=== PATIENT | female | born 1960 | race Caucasian/White ===

== ENCOUNTER 2016-10-06 21:36 | Emergency (ER) | payer OTHER ==
--- NOTE | 2016-10-06 22:04 | ED NURSING NOTES ---
Clinical Report - Nurses [facility] [address] [place] [address] 10/06/2016 21:38 Patient: KAYKAY BLAS TRIAGE Triage time 21:48 Oct 06 2016. Acuity: LEVEL 4. Chief Complaint: (fever and sore throat). 21:52 10/06/16. SEPSIS SCREEN: Sepsis Screen. Negative (no infection suspected/documented). ARELY COMA SCORE: Arely Coma Scale: 15- eyes open spontaneously (4); best verbal response- oriented x 4 (5); best motor response- obeys commands (6). --21:52 Mirella Collins R.N. 21:52 10/06/16. BP: 179/80. HR: 94. RR: 100. O2 saturation: 100%. Temp: 100.9 F. Pain level now 8/10. --21:52 Mirella Collins R.N. Weight: 65.7 kg stated. Height/Length: 63 inches Per Patient. BMI: 25.7. --21:47 Mirella Collins R.N. Medications None. --21:50 Mirella Collins R.N. Medication/allergy information source: the patient. --21:52 Mirella Collins R.N. Allergies No Known Drug Allergy. --21:50 Mirella Collins R.N. History Arrived by private vehicle. Historian: patient ([facility]). Accompanied by family. This started today. ( painful throat, pain to swallow). She has had fever and a cough. No weakness, difficulty breathing or skin rash. Denies muscle aches. 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 PAST MEDICAL HX: Immunizations: seasonal influenza. SOCIAL HX: Never smoker. Occasional alcohol use. No drug use. No infectious disease exposure. ABUSE ASSESSMENT: No report of abuse. SELF HARM ASSESSMENT: A self harm assessment was performed. The patient answered "no" to the question "Have you recently felt down, depressed, or hopeless?", "Have you noticed less interest or pleasure in doing things?", "Do you have thoughts of harming or killing yourself?", "Are you here because you tried to hurt yourself?", "Have you ever tried to hurt yourself before today?", "Have you recently had thoughts about harming or killing others?" and "Do you have any dangerous items in your possession?". NUTRITIONAL RISK ASSESSMENT: The nutritional risk assessment revealed no deficiencies. FUNCTIONAL ASSESSMENT: Functional assessment: no impairments noted. LEARNING NEEDS ASSESSMENT: The learning needs assessment revealed no barriers. SKIN INTEGRITY ASSESSMENT: Skin integrity risk assessment completed. No skin integrity risk identified. --21:52 Mirella Collins R.N. PROBLEMS: no known problems. ADDITIONAL SURGERIES: Cardiac ablation. --21:50 Mirella Collins R.N. Interventions ID band on patient. --21:52 Mirella Collins R.N. PHYSICAL ASSESSMENT 21:53 10/06/16. GENERAL / NEURO / PSYCH: Alert. Oriented X 4. HEENT: Pupils equal, round and reactive to light. No facial asymmetry noted. Pharyngeal erythema. Runny nose. No sinus tenderness present. RESPIRATORY: Breath sounds within normal limits. CVS: Pulses within normal limits. GI / : Abdomen nontender. SKIN: Skin intact. Skin is warm and dry. Normal skin turgor. --21:53 Mirella Collins R.N. NURSING PROGRESS NOTES 21:54 10/06/16. Patient gowned. Reassurance given. Patient identifiers checked. Call light placed in reach. Side rails up. Bed placed in lowest position. Brakes of bed on. Patient ready for evaluation. --21:54 Mirella Collins R.N. 22:15 10/06/2016 Hydrocodone-APAP (Hydrocodone-Acetaminophen) PO 5/325 mg Tablets 1 tab given. Allergies verified, confirmed 5 rights and sedative warning given to the patient and patient's family. --22:19 Mirella Collins R.N. DISPOSITION / DISCHARGE 22:20 10/06/16. Departure time: 22:20 Oct 06 2016. Condition at departure: improved and stable. The goals identified in the patient's plan of care were met. No learning barriers present. Reviewed medication(s) side effects, precautions, dosing and course information. Prescription(s) given to the patient. Reviewed fever care instructions. Reviewed referral to a primary care physician for followup. Summary of care provided to patient via paper. Patient verbalized understanding. Written instructions provided in Paraguayan. The patient was discharged home and accompanied by spouse. She left the Emergency Department ambulatory and via private vehicle. Spouse driving. FALL RISK ASSESSMENT: Fall risk assessment completed. No fall risk identified. --22:20 Mirella Collins R.N. 21:48 10/06/16. BP: 179/80. HR: 94. RR: 100. O2 saturation: 100%. Temp: 100.9 F. Pain level now 8/10. --22:20 Mirella Collins R.N. Locked/Released at 10/06/2016 22:20 by Mirella Collins R.N.
--- NOTE | 2016-10-06 22:04 | ED CLINICAL REPORT ---
Clinical Report - Physicians/Mid Levels [facility] [address] [place] [address] 10/06/2016 21:38 Patient: KAYKAY BLAS Time Seen: 21:42; upon arrival, initial patient contact, initial documentation, patient care assumed. Arrived- By private vehicle. Historian- patient. HISTORY OF PRESENT ILLNESS Chief Complaint: SORE THROAT. This started about 2 - 3 days ago and is still present and now worse. (today with fever). The patient has had a severe sore throat with pain upon swallowing. No mouth sores, nasal discharge or congestion, ear pain or toothache. No swollen jaw or face, jaw pain or facial pain. Similar symptoms previously: None. Recent medical care: Not recently seen/assessed. REVIEW OF SYSTEMS The patient has had fever of 101 F and enlarged lymph nodes. No cough or difficulty breathing. All systems otherwise negative, except as recorded above. PAST HISTORY See nurses notes. PROBLEMS: no known problems. ADDITIONAL SURGERIES: Cardiac ablation. --21:50 Mirella Collins R.N. SOCIAL HISTORY Never smoker. No alcohol use or drug use. No recent travel. Is a local resident. FAMILY HISTORY Negative. ADDITIONAL NOTES The nursing notes have been reviewed with agreement regarding the chief complaint, HPI, ROS, PMH and patient medications and allergies. PHYSICAL EXAM Vital Signs: 10/06/2016 21:52 BP: 179/80. HR: 94. RR: 100. O2 saturation: 100%. Temp: 100.9 F. Have been reviewed as abnormal and appear to be correct. Blood pressure normal. Heart rate normal. Respiratory rate normal. Febrile. Oxygen saturation normal. Appearance: Alert. No acute distress. Head: Normal external inspection. Eyes: Pupils equal, round and reactive to light. Conjunctivae and eyelids normal. ENT: Ears not normal. Abnormal ear exam. Right Ear: there is wax completely occluding the external canal and a cerumen impaction. Nose normal. Pharynx abnormal. Moderate generalized pharyngeal erythema. No pharyngeal vesicles or ulcerations. No right tonsillar exudate, right tonsillar abscess, right tonsillar swelling, right peritonsillitis, left tonsillar exudate, left tonsillar swelling or left peritonsillitis. Lips normal. Gums normal. No trismus present. Uvula midline. Neck: Lymphadenopathy. Normal inspection. Moderate right anterior neck and moderate left anterior neck lymphadenopathy present. Trachea midline. Thyroid normal. Neck supple. Respiratory: No respiratory distress. Skin: Normal skin color. No rash. Normal skin turgor. Extremities: Extremities exhibit normal ROM. Extremities nontender. Neuro: Oriented X 3. No motor deficit. No sensory deficit. PROGRESS AND PROCEDURES Patient and spouse counseled in person regarding the patient's stable condition and diagnosis. 22:04. Differential Diagnosis: Other possible considerations: pharyngitis - viral or bacteria, mono, marychuy angina, flu. Above considerations are based on history and physical exam. Differential diagnosis was discussed with patient. Disposition: Discharged home in good and unchanged condition (22:04). Condition: good and stable. CLINICAL IMPRESSION Acute pharyngitis Acute fever INSTRUCTIONS Alternate Tylenol (Acetaminophen) and Motrin (Ibuprofen) for fever, temperature greater than 101 degrees orally. Take according to label instructions. Drink plenty of fluids. Warnings: GENERAL WARNINGS: Return or contact your physician immediately if your condition worsens or changes unexpectedly, if not improving as expected, or if other problems arise. Specifically return if problem worsens. Prescription Medications: Amoxicillin 500 mg tablets: Take 1 orally every 8 hours for 10 days. Dispense thirty (30). No refills. Motrin 600 mg tablets: take 1 tablet orally every 6 hours as needed for pain or fever. Dispense twenty (20). No refill. Follow-up: Follow up with your doctor in about three days even if well. Call for an appointment. Summary of care provided to patient. Understanding of the discharge instructions verbalized by patient. (Electronically signed by Jie Atwood A.R.N.P. 10/06/2016 22:26)
--- NOTE | 2016-10-06 22:04 | ED NURSING NOTES ---
Clinical Report - Nurses [facility] [address] [place] [address] 10/06/2016 21:38 Patient: KAYKAY BLAS TRIAGE Triage time 21:48 Oct 06 2016. Acuity: LEVEL 4. Chief Complaint: (fever and sore throat). 21:52 10/06/16. SEPSIS SCREEN: Sepsis Screen. Negative (no infection suspected/documented). ARELY COMA SCORE: Arely Coma Scale: 15- eyes open spontaneously (4); best verbal response- oriented x 4 (5); best motor response- obeys commands (6). --21:52 Mirella Collins R.N. 21:52 10/06/16. BP: 179/80. HR: 94. RR: 100. O2 saturation: 100%. Temp: 100.9 F. Pain level now 8/10. --21:52 Mirella Collins R.N. Weight: 65.7 kg stated. Height/Length: 63 inches Per Patient. BMI: 25.7. --21:47 Mirella Collins R.N. Medications None. --21:50 Mirella Collins R.N. Medication/allergy information source: the patient. --21:52 Mirella Collins R.N. Allergies No Known Drug Allergy. --21:50 Mirella Collins R.N. History Arrived by private vehicle. Historian: patient ([facility] [place]). Accompanied by family. This started today. ( painful throat, pain to swallow). She has had fever and a cough. No weakness, difficulty breathing or skin rash. Denies muscle aches. 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 PAST MEDICAL HX: Immunizations: seasonal influenza. SOCIAL HX: Never smoker. Occasional alcohol use. No drug use. No infectious disease exposure. ABUSE ASSESSMENT: No report of abuse. SELF HARM ASSESSMENT: A self harm assessment was performed. The patient answered "no" to the question "Have you recently felt down, depressed, or hopeless?", "Have you noticed less interest or pleasure in doing things?", "Do you have thoughts of harming or killing yourself?", "Are you here because you tried to hurt yourself?", "Have you ever tried to hurt yourself before today?", "Have you recently had thoughts about harming or killing others?" and "Do you have any dangerous items in your possession?". NUTRITIONAL RISK ASSESSMENT: The nutritional risk assessment revealed no deficiencies. FUNCTIONAL ASSESSMENT: Functional assessment: no impairments noted. LEARNING NEEDS ASSESSMENT: The learning needs assessment revealed no barriers. SKIN INTEGRITY ASSESSMENT: Skin integrity risk assessment completed. No skin integrity risk identified. --21:52 Mirella Collins R.N. PROBLEMS: no known problems. ADDITIONAL SURGERIES: Cardiac ablation. --21:50 Mirella Collins R.N. Interventions ID band on patient. --21:52 Mirella Collins R.N. PHYSICAL ASSESSMENT 21:53 10/06/16. GENERAL / NEURO / PSYCH: Alert. Oriented X 4. HEENT: Pupils equal, round and reactive to light. No facial asymmetry noted. Pharyngeal erythema. Runny nose. No sinus tenderness present. RESPIRATORY: Breath sounds within normal limits. CVS: Pulses within normal limits. GI / : Abdomen nontender. SKIN: Skin intact. Skin is warm and dry. Normal skin turgor. --21:53 Mirella Collins R.N. NURSING PROGRESS NOTES 21:54 10/06/16. Patient gowned. Reassurance given. Patient identifiers checked. Call light placed in reach. Side rails up. Bed placed in lowest position. Brakes of bed on. Patient ready for evaluation. --21:54 Mirella Collins R.N. 22:15 10/06/2016 Hydrocodone-APAP (Hydrocodone-Acetaminophen) PO 5/325 mg Tablets 1 tab given. Allergies verified, confirmed 5 rights and sedative warning given to the patient and patient's family. --22:19 Mirella Collins R.N. DISPOSITION / DISCHARGE 22:20 10/06/16. Departure time: 22:20 Oct 06 2016. Condition at departure: improved and stable. The goals identified in the patient's plan of care were met. No learning barriers present. Reviewed medication(s) side effects, precautions, dosing and course information. Prescription(s) given to the patient. Reviewed fever care instructions. Reviewed referral to a primary care physician for followup. Summary of care provided to patient via paper. Patient verbalized understanding. Written instructions provided in Cam[place]onian. The patient was discharged home and accompanied by spouse. She left the Emergency Department ambulatory and via private vehicle. Spouse driving. FALL RISK ASSESSMENT: Fall risk assessment completed. No fall risk identified. --22:20 Mirella Collins R.N. 21:48 10/06/16. BP: 179/80. HR: 94. RR: 100. O2 saturation: 100%. Temp: 100.9 F. Pain level now 8/10. --22:20 Mirella Collins R.N. Locked/Released at 10/06/2016 22:20 by Mirella Collins R.N.
--- NOTE | 2016-10-06 22:26 | ED MED RECONCILIATION SUMMARY ---
Patient: KAYKAY BLAS Medication Reconciliation Report [facility] VisitID: [id number] [address] [place] [address] 56y, F Registration Date/Time: 10/06/2016 Weight: 65.7 kg Height/Length: 63 in. BMI: 25.7 ALLERGIES: No Known Drug Allergy The patient's Home Medications are listed below: NONE. The source(s) of the original Home Medication information: patient The following Medications were given to the patient in the Emergency Department: Hydrocodone-APAP [PO] PO 1 tab, administered: 10/06/2016 10:15:00 PM The following Medications were prescribed to the patient: Amoxicillin 500 mg tablets: Take 1 orally every 8 hours for 10 days. Dispense thirty (30). No refills. -- Jie Atwood, A.R.N.P. Motrin 600 mg tablets: take 1 tablet orally every 6 hours as needed for pain or fever. Dispense twenty (20). No refill. -- Jie Atwood, A.R.N.P.
--- NOTE | 2016-10-06 22:26 | ED MED RECONCILIATION SUMMARY ---
Patient: KAYKAY BLAS Medication Reconciliation Report VisitID: [id number] [address] [place] [address] 56y, F Registration Date/Time: 10/06/2016 Weight: 65.7 kg Height/Length: 63 in. BMI: 25.7 ALLERGIES: No Known Drug Allergy The patient's Home Medications are listed below: NONE. The source(s) of the original Home Medication information: patient The following Medications were given to the patient in the Emergency Department: Hydrocodone-APAP [PO] PO 1 tab, administered: 10/06/2016 10:15:00 PM The following Medications were prescribed to the patient: Amoxicillin 500 mg tablets: Take 1 orally every 8 hours for 10 days. Dispense thirty (30). No refills. -- Jie Atwood, A.R.N.P. Motrin 600 mg tablets: take 1 tablet orally every 6 hours as needed for pain or fever. Dispense twenty (20). No refill. -- Jie Atwood, A.R.N.P.
--- NOTE | 2016-10-06 22:26 | ED ORDER SUMMARY ---
..... Patient: KAYKAY BLAS OrderSheet [facility] VisitID: [id number] [address] [place] [address] 56y, F Registration Date/Time: 10/06/2016 ORDER SHEET Weight: 65.7 kg (stated) Allergies: No Known Drug Allergy GENERAL ORDERS: MEDICATION ORDERS: Hydrocodone-APAP PO 5/325 mg (NOW, HIGH ALERT MEDICATION) (22:04 10/06/2016 Guerrero A.R.N.P.) (22:19 Shaw R.N.) IV FLUIDS: ORDER SHEET NOTES: [Electronically signed by Mirella Collins R.N. (22:20 10/06/2016)] [Electronically signed by Jie AtwoodR.N.PLalito (22:26 10/06/2016)] [Electronically locked/signed by Mirella Collins R.N. (22:20 10/06/2016)]
--- NOTE | 2016-10-06 22:26 | ED MAR SUMMARY ---
..... Medication Administration Record [facility] [address] [place] [address] Patient: KAYKAY BLAS Visit ID: [id number] 56y, F Weight: 65.7 kg Height/Length: 63 in BMI: 25.7 ALLERGIES: No Known Drug Allergy Given 22:15 10/06/2016 Mirella Collins R.N. Medication Administered: HYDROCODONE-APAP [PO] (HYDROCODONE-ACETAMINOPHEN), Dose: 1 tab 5/325 mg Tablets PO. Medication Ordered: Hydrocodone-APAP PO 5/325 mg (NOW, HIGH ALERT MEDICATION).
--- NOTE | 2016-10-06 22:26 | ED ORDER SUMMARY ---
..... Patient: KAYKAY BLAS OrderSheet [facility] VisitID: [id number] [address] [place] [address] 56y, F Registration Date/Time: 10/06/2016 ORDER SHEET Weight: 65.7 kg (stated) Allergies: No Known Drug Allergy GENERAL ORDERS: MEDICATION ORDERS: Hydrocodone-APAP PO 5/325 mg (NOW, HIGH ALERT MEDICATION) (22:04 10/06/2016 Guerrero A.R.N.P.) (22:19 Shaw R.N.) IV FLUIDS: ORDER SHEET NOTES: [Electronically signed by Mirlela Collins R.N. (22:20 10/06/2016)] [Electronically signed by Jie AtwoodR.N.PLalito (22:26 10/06/2016)] [Electronically locked/signed by Mirella Collins R.N. (22:20 10/06/2016)]
--- NOTE | 2016-10-06 22:26 | ED MAR SUMMARY ---
..... Medication Administration Record [facility] [address] [place] [address] Patient: KAYKAY BLAS Visit ID: [id number] 56y, F Weight: 65.7 kg Height/Length: 63 in BMI: 25.7 ALLERGIES: No Known Drug Allergy Given 22:15 10/06/2016 Mirella Collins R.N. Medication Administered: HYDROCODONE-APAP [PO] (HYDROCODONE-ACETAMINOPHEN), Dose: 1 tab 5/325 mg Tablets PO. Medication Ordered: Hydrocodone-APAP PO 5/325 mg (NOW, HIGH ALERT MEDICATION).
--- NOTE | 2016-10-06 22:26 | ED DISCHARGE INSTRUCTIONS ---
Patient: KAYKAY BLAS General Instructions [facility] VisitID: [id number] [place] [address] 56y, F Registration Date/Time: 10/06/2016 Acute pharyngitis Acute fever INSTRUCTIONS Alternate Tylenol (Acetaminophen) and Motrin (Ibuprofen) for fever, temperature greater than 101 degrees orally. Take according to label instructions. Drink plenty of fluids. Warnings: GENERAL WARNINGS: Return or contact your physician immediately if your condition worsens or changes unexpectedly, if not improving as expected, or if other problems arise. Specifically return if problem worsens. Prescription Medications: Amoxicillin 500 mg tablets: Take 1 orally every 8 hours for 10 days. Dispense thirty (30). No refills. Motrin 600 mg tablets: take 1 tablet orally every 6 hours as needed for pain or fever. Dispense twenty (20). No refill. Follow-up: Follow up with your doctor in about three days even if well. Call for an appointment. Summary of care provided to patient. Understanding of the discharge instructions verbalized by patient. ADDITIONAL INFORMATION Febrile Illness, Uncertain Cause (Adult) You have a fever, but the cause is not certain. A fever is a natural reaction of the body to an illness such as infections due to a virus or bacteria. In most cases, the temperature itself is not harmful. It actually helps the body fight infections. A fever does not need to be treated unless you feel very uncomfortable. Sometimes a fever can be an early sign of a more serious infection. Therefore, you should watch for the signs listed below. Home Care: If signs and symptoms are severe, rest at home for the first 2-3 days. When you resume activity, don't let yourself get too tired. Stay away from cigarette smoke (yours and other peoples). You may use acetaminophen (Tylenol) or ibuprofen (Motrin, Advil) to control fever or pain, unless another medicine was prescribed. NOTE: If you have chronic liver or kidney disease or ever had a stomach ulcer or GI bleeding, talk with your doctor before using these medicines. (Aspirin should never be used in anyone under 18 years of age who is ill with a fever. It may cause severe liver damage.) Your appetite may be poor, so a light diet is fine. Avoid dehydration by drinking 6-8 glasses of fluid per day (water, sport drinks such as Gatorade, sodas without caffeine, juices, tea, soup). Extra fluid will help loosen secretions in the nose and lungs. Naos-act-npxdwom products will not shorten the duration of the illness but may be helpful for the following symptoms: cough (Robitussin DM); sore throat (Chloraseptic lozenges or spray); nasal and sinus congestion (Actifed or Sudafed). NOTE: Do not use decongestants if you have high blood pressure. Follow Up with your doctor or as advised if you do not start to improve over the next week. Get Prompt Medical Attention if any of the following occur: Cough with lots of colored sputum (mucus) or blood in your sputum Chest pain, shortness of breath, wheezing or difficulty breathing Severe headache, face, neck, throat or ear pain Feeling drowsy or confused Abdominal pain, repeated vomiting or diarrhea Joint pain or a new rash Burning when urinating Fever of 100.4F (38C) oral or higher, not better with fever medication Feeling weak or dizzy Convulsion Taking Your Child's Temperature If your child feels hot, then check the temperature. Under 3 months : Start with a AXILLARY temperature. If it is above 99.0 F (37.2 C), take a RECTAL temperature. 3 months to 4 years : Measure a RECTAL temperature, or an EAR temperature. Over 4 years : Measure an ORAL temperature. Rectal Temperature is the most accurate. Ear temperature is not as accurate as a rectal or oral temperature, but is more convenient and can be used in the 3 month to 4 year old. Other methods such as plastic strips , forehead devices , and pacifier thermometers are even less accurate and they are not recommended. If you do not know how to use a thermometer, ask your nurse or pharmacist. Oral Method: Normal: 98.6 F (37.0 C). Range of normal: Up to 99.0 F (37.2 C). Recommended Age: Use this method for children older than 4 or 5 years of age, only if cooperative. 1) Wait at least 20 minutes after drinking or eating before taking an oral temperature. 2) Place the tip of a the thermometer under the child's tongue. 3) Have child close lips gently, without biting on the thermometer. 4) Keep under the tongue until the thermometer beeps. 5) Remove thermometer and read the temperature in the display. 6) Clean the thermometer with alcohol, or soap and water after each use. Axillary Method (UNDER THE ARM): Normal: 97.6 F (36.6 C) Range of Normal: Up to 98.6 F (37.0 C) Recommended Age: Use this method for children under 4 years of age or any uncooperative child. 1) Make sure armpit is dry and the child does not have clothing between arm and chest. 2) Place the tip of the thermometer high up in the armpit. 4) Hold the child's arm snug against their body with the thermometer in place until it beeps. 5) Remove thermometer and read the temperature in the display. 6) Clean the thermometer with alcohol, or soap and water after each use. Rectal Method: Normal: 99.6 F (37.6 C). Range of Normal: Up to 100.4 F (38.0 C). Recommended age: Use this method for children under 4 years of age or any uncooperative child. 1) Lubricate the tip of a rectal thermometer with a lubricant such as Vaseline jelly or K-Y jelly. 2) Lay your child face down across your lap, or on his/her side with knees bent toward the chest. Spread buttocks so that the anus can be easily seen. 3) Hold the thermometer between your thumb and index finger with the edge of your hand resting on the buttocks. Slowly and gently insert thermometer into the anus about one inch. The tip should slide in easily. Do not force it since they may cause injury. 4) Do not let go of the thermometer! Hold it carefully in place until it beeps. 5) Remove thermometer and read the temperature in the display. 6) Clean the thermometer with alcohol, or soap and water after each use. When To Seek Help Call your doctor or return here if you have an infant younger than 3 months with a temperature of 100.4 F (38.0 C) or an older child with a fever higher than 104.0 F (40.0 C). Pharyngitis: Strep [Presumed] Your illness has the signs of a strep throat infection. Strep throat is a contagious illness. It is spread by coughing, kissing or by touching others after touching your mouth or nose. Symptoms include throat pain worse with swallowing, aching all over, headache and fever. You will be treated with an antibiotic, which should make you start to feel better within 1-2 days. Home Care: Rest at home and drink plenty of fluids to avoid dehydration. No school or work for the first two days on antibiotics. You will not be contagious after this time, and if you are feeling better, you can return to school or work. Take your antibiotics for a full 10 days, even if you feel better after the first few days of treatment. This is very important to prevent complications from the strep infection (such as heart or kidney disease). Children: Use acetaminophen (Tylenol) for fever, fussiness or discomfort. In infants over six months of age, you may use ibuprofen (Children's Motrin) instead of Tylenol. [NOTE: If your child has chronic liver or kidney disease or ever had a stomach ulcer or GI bleeding, talk with your doctor before using these medicines.] (Aspirin should never be used in anyone under 18 years of age who is ill with a fever. It may cause severe liver damage.) Adults: You may use acetaminophen (Tylenol) or ibuprofen (Motrin, Advil) to control pain or fever, unless another medicine was prescribed for this. [NOTE: If you have chronic liver or kidney disease or ever had a stomach ulcer or GI bleeding, talk with your doctor before using these medicines.] Throat lozenges or sprays (Chloraseptic and others) will reduce pain. Gargling with warm salt water will also reduce throat pain. Dissolve 1/2 teaspoon of salt in 1 glass of warm water. This is especially useful just before meals. Follow Up with your doctor or as directed by our staff if you are not improving over the next week. Get Prompt Medical Attention if any of the following occur: Fever over 100.5F (38.0C) oral, or over 101.5F (38.6C) rectal for more than three days New or worsening ear pain, sinus pain or headache Painful lumps in the back of your neck Unable to swallow liquids or open your mouth wide due to throat pain Trouble breathing or noisy breathing Muffled voice New rash Fever Control (Adult) A fever is a natural reaction of the body to an illness. In most cases, the temperature itself is not harmful. It actually helps the body fight infections. A fever does not need to be treated unless you feel very uncomfortable. Home Care If you feel warm, check your temperature. If you feel very uncomfortable and your temperature is at or higher than 100.4F (38C) oral, you may take acetaminophen (Tylenol) every 4 to 6 hours. If you cant take or keep down oral medicine, ask your pharmacist for Tylenol suppositories, which you can get without a prescription. If the fever does not respond to acetaminophen within 1 hour, take ibuprofen (Advil or Motrin). If this works, keep taking the ibuprofen every 6 to 8 hours. Note: If you have chronic liver or kidney disease or ever had a stomach ulcer or GI bleeding, talk with your doctor before using these medications. If either medication alone does not keep the fever down, you may alternate the two medicines every 3 to 4 hours, only if your healthcare provider has instructed you to do so. For example, take Motrin then wait 3 hours, take Tylenol then wait 3 hours, take Motrin, and so on. Follow your healthcare providers instructions exactly. Clothing: Keep clothing light because excess body heat is lost through the skin. The fever will go up if you wear extra layers or wrap in blankets. Fluids: Fever causes the body to lose water through evaporation. Drink plenty of fluids such as water, juice, clear sodas, сергей ita, or lemonade. Do not use aspirin in anyone under 18 years of age who is ill with a fever. It can cause severe liver damage. Follow Up with your doctor or as advised by our staff if you do not get better after 48 hours. Get Prompt Medical Attention if any of the following occur: Fever does not get better after taking fever medication Fast or difficult breathing Earache, sinus pain, stiff or painful neck, headache, repeated diarrhea or vomiting You feel unusually irritable, drowsy, or confused A rash appears You feel weak or dizzy, or that you might faint Amoxicillin Trihydrate Oral tablet What is this medicine? AMOXICILLIN (a mox i DARRYL in) is a penicillin antibiotic. It is used to treat certain kinds of bacterial infections. It will not work for colds, flu, or other viral infections. How should I use this medicine? Take this medicine by mouth with a glass of water. Follow the directions on your prescription label. You may take this medicine with food or on an empty stomach. Take your medicine at regular intervals. Do not take your medicine more often than directed. Take all of your medicine as directed even if you think your are better. Do not skip doses or stop your medicine early. Talk to your radiology physician assistant regarding the use of this medicine in children. While this drug may be prescribed for selected conditions, precautions do apply. What side effects may I notice from receiving this medicine? Side effects that you should report to your doctor or health rn transitional care as soon as possible: allergic reactions like skin rash, itching or hives, swelling of the face, lips, or tongue breathing problems dark urine redness, blistering, peeling or loosening of the skin, including inside the mouth seizures severe or watery diarrhea trouble passing urine or change in the amount of urine unusual bleeding or bruising unusually weak or tired yellowing of the eyes or skin Side effects that usually do not require medical attention (report to your doctor or health rn transitional care if they continue or are bothersome): dizziness headache stomach upset trouble sleeping What may interact with this medicine? amiloride control pills chloramphenicol macrolides probenecid sulfonamides tetracyclines What if I miss a dose? If you miss a dose, take it as soon as you can. If it is almost time for your next dose, take only that dose. Do not take double or extra doses. Where should I keep my medicine? Keep out of the reach of children. Store between 68 and 77 degrees F (20 and 25 degrees C). Keep bottle closed tightly. Throw away any unused medicine after the expiration date. What should I tell my health care provider before I take this medicine? They need to know if you have any of these conditions: asthma kidney disease an unusual or allergic reaction to amoxicillin, other penicillins, cephalosporin antibiotics, other medicines, foods, dyes, or preservatives or trying to get breast-feeding What should I watch for while using this medicine? Tell your doctor or health rn transitional care if your symptoms do not improve in 2 or 3 days. Take all of the doses of your medicine as directed. Do not skip doses or stop your medicine early. If you are diabetic, you may get a false positive result for sugar in your urine with certain brands of urine tests. Check with your doctor. Do not treat diarrhea with [id number] products. Contact your doctor if you have diarrhea that lasts more than 2 days or if the diarrhea is severe and watery. Ibuprofen Oral tablet What is this medicine? IBUPROFEN (eye BYOO proe fen) is a non-steroidal anti-inflammatory drug (NSAID). It is used for dental pain, fever, headaches or migraines, osteoarthritis, rheumatoid arthritis, or painful monthly periods. It can also relieve minor aches and pains caused by a cold, flu, or sore throat. How should I use this medicine? Take this medicine by mouth with a glass of water. Follow the directions on the prescription label. Take this medicine with food if your stomach gets upset. Try to not lie down for at least 10 minutes after you take the medicine. Take your medicine at regular intervals. Do not take your medicine more often than directed. A special MedGuide will be given to you by the pharmacist with each prescription and refill. Be sure to read this information carefully each time. Talk to your radiology physician assistant regarding the use of this medicine in children. Special care may be needed. What side effects may I notice from receiving this medicine? Side effects that you should report to your doctor or health rn transitional care as soon as possible: allergic reactions like skin rash, itching or hives, swelling of the face, lips, or tongue black or bloody stools, blood in the urine or in vomit breathing problems changes in vision chest pain general ill feeling or flu-like symptoms nausea or vomiting redness, blistering, peeling or loosening of the skin, including inside the mouth slurred speech or weakness on one side of the body stomach pain unexplained weight gain or swelling unusually weak or tired yellowing of eyes or skin Side effects that usually do not require medical attention (report to your doctor or health rn transitional care if they continue or are bothersome): constipation or diarrhea dizziness gas or heartburn stomach upset What may interact with this medicine? Do not take this medicine with any of the following medications: cidofovir ketorolac methotrexate pemetrexed This medicine may also interact with the following medications: alcohol aspirin diuretics lithium other drugs for inflammation like prednisone warfarin What if I miss a dose? If you miss a dose, take it as soon as you can. If it is almost time for your next dose, take only that dose. Do not take double or extra doses. Where should I keep my medicine? Keep out of the reach of children. Store at room temperature between 15 and 30 degrees C (59 and 86 degrees F). Keep container tightly closed. Throw away any unused medicine after the expiration date. What should I tell my health care provider before I take this medicine? They need to know if you have any of these conditions: asthma cigarette smoker drink more than 3 alcohol containing drinks a day heart disease or circulation problems such as heart failure or leg edema (fluid retention) high blood pressure kidney disease liver disease stomach bleeding or ulcers an unusual or allergic reaction to ibuprofen, aspirin, other NSAIDS, other medicines, foods, dyes, or preservatives or trying to get breast-feeding What should I watch for while using this medicine? Tell your doctor or healthcare professional if your symptoms do not start to get better or if they get worse. This medicine does not prevent heart attack or stroke. In fact, this medicine may increase the chance of a heart attack or stroke. The chance may increase with longer use of this medicine and in people who have heart disease. If you take aspirin to prevent heart attack or stroke, talk with your doctor or health rn transitional care. Do not take other medicines that contain aspirin, ibuprofen, or naproxen with this medicine. Side effects such as stomach upset, nausea, or ulcers may be more likely to occur. Many medicines available without a prescription should not be taken with this medicine. This medicine can cause ulcers and bleeding in the stomach and intestines at any time during treatment. Ulcers and bleeding can happen without warning symptoms and can cause . To reduce your risk, do not smoke cigarettes or drink alcohol while you are taking this medicine. You may get drowsy or dizzy. Do not drive, use machinery, or do anything that needs mental alertness until you know how this medicine affects you. Do not stand or sit up quickly, especially if you are an older patient. This reduces the risk of dizzy or fainting spells. This medicine can cause you to bleed more easily. Try to avoid damage to your teeth and gums when you brush or floss your teeth. You have been given the following additional information: Febrile Illness, Uncertain Cause (Adult) Thermometer Use Pharyngitis, Strep (Presumed) Fever Control (Adult) Amoxicillin Trihydrate Oral tablet Ibuprofen Oral tablet (Electronically signed by Jie Atwood A.R.N.P. 10/06/2016 22:26)
== END 2016-10-06 22:20 | disposition home or self-care (01) ==
LOC: ED SRH 21:36
DX: J02.9 Acute pharyngitis, unspecified (principal); R50.9 Fever, unspecified; H61.21 Impacted cerumen, right ear